=== PATIENT | female | born 1950 | race Caucasian/White ===

== ENCOUNTER 2022-01-05 10:30 | Observation (INO) | payer MEDICARE, BC ==
[2022-01-05 13:36] LABS: Hemoglobin 13.7 g/dL (12.0-15.5); Mean Corpuscular HGB CONC 33.3 g/dL (32.0-36.0); Mean Corpuscular Hemoglobin 32.9 pg (27.0-33.0); Mean Platelet Volume 8.9 fl (7.4-10.4); Platelet Count 259 10x3/uL (150-450); RBC Distribution Width 13.9 % (11.5-14.5); Red Blood Cell (RBC) Count 4.16 10x6/uL (3.90-5.03); White Blood Cell (WBC) Count 4.7 10x3/uL (3.5-10.5)
[2022-01-05 13:49] LABS: PTT 29.9 sec (22.0-33.0)
[2022-01-05 13:51] LABS: Anion Gap 15 mmol/L (10-20); BUN (Urea Nitrogen) 13 mg/dL (9.8-20.1); Calc. Creatinine Clearance 0 mL/min (70-130); Calcium 8.9 mg/dL (7.8-10.44); Carbon Dioxide 23 mmol/L (23-31); Chloride 103 mmol/L (98-107); Glucose 107 mg/dL (83-110); Potassium 4.2 mmol/L (3.5-5.1); Sodium 137 mmol/L (136-145)
[2022-01-05 15:45] VITALS: BMI 28.1
[2022-01-10] MEDS ORDERED: Lidocaine 1% MPF 2 ML VIAL ONE (06:38)
[2022-01-10] MEDS ORDERED: Famotidine/PF 20 mg/2ml Vial ONE (06:50)
[2022-01-10] MEDS ORDERED: Phenylephrine 40 MG/NS 250 ML 250 ML ONE (06:52)
[2022-01-10] MEDS ORDERED: Fentanyl 250 MCG/5 ML VIAL ONE (06:52)
[2022-01-10] MEDS ORDERED: Propofol 1,000 MG/100 ML VIAL IV ONE (06:52)
[2022-01-10] MEDS ORDERED: Lidocaine 1% PF 5 ML VIAL ONE (06:54)
[2022-01-10] MEDS ORDERED: Ondansetron PF 4 MG/2 ML Vial ONE (06:54)
[2022-01-10] MEDS ORDERED: Dexamethasone 4 mg/ml Vial ONE (06:54)
[2022-01-10] MEDS ORDERED: Rocuronium Bromide 10 MG/ML (10ML VIAL) ONE (06:54)
[2022-01-10] MEDS ORDERED: ceFAZolin 2 GM/Dextrose 50 ML IVPB ONE (06:56)
[2022-01-10] MEDS ORDERED: ePHEDrine Sulfate 50 MG/10 ML VIAL ONE (07:26)
[2022-01-10] MEDS ORDERED: Glycopyrrolate 0.2 MG/ML 5 ML SYRINGE ONE (10:03)
[2022-01-10] MEDS ORDERED: HYDROcodone/Acetaminophen 5/325 mg Tablet PO PRN (10:23)
[2022-01-10] MEDS ORDERED: INFLIXIMAB DYYB 100 MG IVPB SCH (10:30)
[2022-01-10] MEDS ORDERED: Communication Order-Pharmacy FS PRN (10:30)
[2022-01-10] MEDS ORDERED: Fentanyl 100 MCG/2 ML VIAL ONE ×2 (10:53→11:21)
[2022-01-10] MEDS: Morphine 2 MG/ML VIAL SLOW IVP PRN ×2 (14:14→17:00)
[2022-01-10 16:31] VITALS: BP 103/51; TEMP 97.4
[2022-01-10] MEDS: ceFAZolin 2 GM/Dextrose 50 ML 2 GM in Premix Bag 1 BAG IVPB SCH ×2 (17:00→22:27)
[2022-01-10] MEDS ORDERED: Amiodarone 200 MG TAB PO SCH (21:00)
[2022-01-10] MEDS ORDERED: Rosuvastatin 10 MG TAB PO SCH (21:00)
[2022-01-10] MEDS ORDERED: Promethazine 25 MG TAB PO SCH (21:30)
[2022-01-10] MEDS ORDERED: Zolpidem Tartrate 5 MG TAB PO SCH (21:30)
[2022-01-10] MEDS: Aspirin 81 mg Enteric Coated Tablet PO SCH (21:31)
[2022-01-11] MEDS ORDERED: Zolpidem Tartrate 5 MG TAB PO SCH (05:30)
[2022-01-11] MEDS ORDERED: Promethazine 25 MG TAB PO SCH (05:30)
[2022-01-11] MEDS: ceFAZolin 2 GM/Dextrose 50 ML 2 GM in Premix Bag 1 BAG IVPB SCH (05:42)
[2022-01-11] MEDS ORDERED: diphenhydrAMINE 25 MG CAP PO SCH ×2 (05:45→09:45)
[2022-01-11] MEDS ORDERED: Levothyroxine Sodium 112 MCG TAB PO SCH (06:00)
[2022-01-11] MEDS ORDERED: Levothyroxine Sodium 25 MCG TAB PO SCH (06:00)
[2022-01-11] MEDS: Aspirin 81 mg Enteric Coated Tablet PO SCH (08:01)
[2022-01-11] MEDS ORDERED: Cholecalciferol 1,000 UNITS (25 MCG) TAB PO SCH (09:00)
[2022-01-11] MEDS ORDERED: Folic Acid 1 MG TAB PO SCH (09:00)
== END 2022-01-11 10:18 | disposition home or self-care (01) ==
LOC: INTOOBSV 01-10 05:37 → CSHERHOLD 01-10 05:37 → CSHTELE 01-10 11:20 → EDSTATUS 01-10 12:30
PROVIDERS: ADMIT Orthopaedic Surgery; ATTEND Orthopaedic Surgery
PROC: 0RG Upper Joints, Fusion (ICD-10-PCS; principal; 2022-01-10)
DX: M50.121 Cervical disc disorder at C4-C5 level with radiculopathy (principal); M48.02 Spinal stenosis, cervical region; Z88.1 Allergy status to other antibiotic agents; Z01.818 Encounter for other preprocedural examination; Z20.822 Contact with and (suspected) exposure to COVID-19
CPT/HCPCS: 22551; 22552; 22853 ×3; 72050; 80048; 85027; 85610; 85730; 86850; 86900; 86901; 93005; 96374; 96375; 96376 ×2; C1713 ×2; C1762; C1889; G0378 ×2; J2270; U0003; U0005; 93010; J0690; J1100; J2405; J2704; J3010; Q0169; S0028

== ENCOUNTER 2022-01-05 12:34 | Outpatient (CLI) | payer MEDICARE, BC | END 2022-01-05 12:35 | disposition home or self-care (01) | LOC: CSHLAB 12:34 | PROVIDERS: ATTEND Orthopaedic Surgery | DX: Z01.818 Encounter for other preprocedural examination (principal); Z20.822 Contact with and (suspected) exposure to COVID-19; M54.2 Cervicalgia | CPT/HCPCS: 80048; 85027; 85610; 85730; 86850; 86900; 86901; 93005; 93010; U0003; U0005 ==

== ENCOUNTER 2023-08-14 15:43 | Inpatient (IN) | payer MEDICARE, BC ==
[2023-08-14 16:49] LABS: #Basophils 0.1 10x3/uL (0.0-0.2); #Eosinphils 0.1 10x3/uL (0.0-0.5); #Monocytes 0.9 10x3/uL (0.0-1.1); %Basophils 0.8 % (0.0-2.0); %Eosinophils 1.6 % (0.0-6.0); %Lymphocytes 18.3 % (18.0-47.0); %Monocytes 14.9 % (0.0-10.0); %Neutrophils 64.1 % (40.0-75.0); Hematocrit 33.5 % (34.9-44.5); Hemoglobin 10.8 g/dL (12.0-15.5); Mean Corpuscular HGB CONC 32.2 g/dL (32.0-36.0); Mean Corpuscular Volume 93.1 fl (81.6-98.3); Mean Platelet Volume 9.1 fl (7.4-10.4); Platelet Count 357 10x3/uL (150-450); RBC Distribution Width 15.7 % (11.5-14.5); White Blood Cell (WBC) Count 6.3 10x3/uL (3.5-10.5)
[2023-08-14 17:05] LABS: Troponin I 0.015 ng/mL (< 0.028)
[2023-08-14 17:24] LABS: ALT (SGPT) 125 U/L (8-55); AST (SGOT) 171 U/L (5-34); Albumin 3.6 g/dL (3.4-4.8); Alkaline Phosphatase 79 U/L (40-110); Anion Gap 17 mmol/L (10-20); BUN (Urea Nitrogen) 17 mg/dL (9.8-20.1); Bilirubin, Total 0.4 mg/dL (0.2-1.2); Calc. Creatinine Clearance 0 mL/min (70-130); Calcium 9.7 mg/dL (7.8-10.44); Carbon Dioxide 27 mmol/L (23-31); Chloride 98 mmol/L (98-107); Estimated GFR 36; Globulin 3.9 g/dL (2.4-3.5); Glucose 108 mg/dL (83-110); Lipase 31 U/L (8-78); Magnesium 1.9 mg/dL (1.6-2.6); Potassium 2.7 mmol/L (3.5-5.1); Protein, Total 7.5 g/dL (5.8-8.1); Sodium 139 mmol/L (136-145)
[2023-08-14] MEDS ORDERED: Potassium Chloride 20 MEQ TAB ONE (17:36)
[2023-08-14] MEDS ORDERED: Magnesium 2 GM/50 ML BAG (IN WATER) ONE (17:37)
[2023-08-14] MEDS ORDERED: Senokot S 8.6-50 MG TAB PO PRN (18:12)
[2023-08-14 20:09] VITALS: BMI 26.4
[2023-08-14] MEDS ORDERED: Famotidine 20 MG TAB PO SCH (21:00)
[2023-08-14] MEDS ORDERED: Colchicine 0.6 MG TAB PO SCH (22:00)
[2023-08-14] MEDS: Acetaminophen 325 MG TAB PO PRN (22:20)
[2023-08-14] MEDS: Zolpidem Tartrate 5 MG TAB PO PRN (22:21)
[2023-08-15] MEDS: Ondansetron ODT 4 MG TAB PO PRN ×3 (04:25→21:08)
[2023-08-15 04:39] LABS: #Eosinphils 0.1 10x3/uL (0.0-0.5); #Neutrophils 2.7 10x3/uL (1.5-8.4); %Basophils 0.7 % (0.0-2.0); %Lymphocytes 28.9 % (18.0-47.0); %Monocytes 18.8 % (0.0-10.0); %Neutrophils 49.4 % (40.0-75.0); Hematocrit 29.8 % (34.9-44.5); Hemoglobin 9.8 g/dL (12.0-15.5); Mean Corpuscular HGB CONC 32.9 g/dL (32.0-36.0); Mean Corpuscular Hemoglobin 30.3 pg (27.0-33.0); Mean Corpuscular Volume 92.3 fl (81.6-98.3); Mean Platelet Volume 9.3 fl (7.4-10.4); Platelet Count 289 10x3/uL (150-450); RBC Distribution Width 15.7 % (11.5-14.5); Red Blood Cell (RBC) Count 3.23 10x6/uL (3.90-5.03); White Blood Cell (WBC) Count 5.5 10x3/uL (3.5-10.5)
[2023-08-15 04:52] LABS: Anion Gap 15 mmol/L (10-20); BUN (Urea Nitrogen) 15 mg/dL (9.8-20.1); Calc. Creatinine Clearance 41 mL/min (70-130); Calcium 8.5 mg/dL (7.8-10.44); Carbon Dioxide 25 mmol/L (23-31); Chloride 102 mmol/L (98-107); Estimated GFR 42; Glucose 82 mg/dL (83-110); Sodium 139 mmol/L (136-145)
[2023-08-15 05:02] LABS: Potassium 2.6 mmol/L (3.5-5.1)
[2023-08-15] MEDS ORDERED: Potassium Chloride 20 MEQ TAB PO SCH (06:15)
[2023-08-15] MEDS ORDERED: Potassium Chloride 40 MEQ in Premix 1 BAG IVPB SCH (07:45)
[2023-08-15] MEDS ORDERED: Levothyroxine Sodium 112 MCG TAB PO SCH (08:00)
[2023-08-15 08:15] LABS: Magnesium 2.1 mg/dL (1.6-2.6); Phosphorus 3.6 mg/dL (2.3-4.7)
[2023-08-15] MEDS: Flecainide 50 MG TAB PO SCH ×3 (08:33→21:12)
[2023-08-15] MEDS: Folic Acid 1 MG TAB PO SCH (08:33)
[2023-08-15] MEDS: Colchicine 0.6 MG TAB PO SCH ×2 (08:34→21:13)
[2023-08-15] MEDS: Aspirin 81 mg Enteric Coated Tablet PO SCH (08:34)
[2023-08-15] MEDS: Potassium Chloride 20 MEQ in Premix 1 BAG IVPB SCH ×2 (08:34→14:20)
[2023-08-15] MEDS: Potassium Chloride 20 MEQ TAB PO SCH ×2 (08:34→16:58)
[2023-08-15] MEDS: Metoprolol Tartrate 25 MG TAB PO SCH ×2 (08:34→21:13)
[2023-08-15] MEDS: Apixaban 5 MG TAB PO SCH ×2 (08:34→21:13)
[2023-08-15] MEDS: Fludrocortisone Acetate 0.1 MG TAB PO SCH ×3 (08:45→15:10)
[2023-08-15] MEDS ORDERED: RISEDRONATE SODIUM 35 MG PO SCH (15:30)
[2023-08-15] MEDS: Acetaminophen 325 MG TAB PO PRN (19:02)
[2023-08-15 20:22] LABS: Potassium, Urine 34.5 mmol/L
[2023-08-15] MEDS ORDERED: Famotidine 20 MG TAB PO SCH (21:00)
[2023-08-15] MEDS ORDERED: Rosuvastatin 20 MG TAB PO SCH (21:00)
[2023-08-15] MEDS: Zolpidem Tartrate 5 MG TAB PO PRN (21:13)
[2023-08-15 21:50] LABS: Anion Gap 13 mmol/L (10-20); BUN (Urea Nitrogen) 12 mg/dL (9.8-20.1); Calc. Creatinine Clearance 42 mL/min (70-130); Calcium 8.2 mg/dL (7.8-10.44); Carbon Dioxide 25 mmol/L (23-31); Chloride 105 mmol/L (98-107); Estimated GFR 43; Glucose 119 mg/dL (83-110); Potassium 3.8 mmol/L (3.5-5.1); Sodium 139 mmol/L (136-145)
[2023-08-15] MEDS ORDERED: Loperamide HCl 2 MG CAP PO SCH (22:00)
[2023-08-16 04:21] LABS: Potassium 3.4 mmol/L (3.5-5.1); Sodium 140 mmol/L (136-145)
[2023-08-16 04:22] LABS: Anion Gap 12 mmol/L (10-20); BUN (Urea Nitrogen) 10 mg/dL (9.8-20.1); Calc. Creatinine Clearance 49 mL/min (70-130); Calcium 8.1 mg/dL (7.8-10.44); Carbon Dioxide 24 mmol/L (23-31); Chloride 107 mmol/L (98-107); Estimated GFR 52; Glucose 101 mg/dL (83-110)
[2023-08-16] MEDS ORDERED: Levothyroxine Sodium 125 MCG TAB PO SCH (06:00)
[2023-08-16] MEDS ORDERED: Levothyroxine Sodium 112 MCG TAB PO SCH (06:00)
[2023-08-16] MEDS ORDERED: Levothyroxine 150 MCG TAB PO SCH (06:00)
[2023-08-16] MEDS: Colchicine 0.6 MG TAB PO SCH (07:54)
[2023-08-16] MEDS: Apixaban 5 MG TAB PO SCH (07:54)
[2023-08-16] MEDS: Folic Acid 1 MG TAB PO SCH (07:54)
[2023-08-16] MEDS: Aspirin 81 mg Enteric Coated Tablet PO SCH (07:54)
[2023-08-16] MEDS: Metoprolol Tartrate 25 MG TAB PO SCH (07:55)
[2023-08-16] MEDS: Flecainide 50 MG TAB PO SCH (07:55)
[2023-08-16] MEDS: Potassium Chloride 20 MEQ TAB PO SCH (07:55)
[2023-08-16] MEDS ORDERED: Potassium Chloride 20 MEQ TAB PO SCH (08:45)
[2023-08-16] MEDS ORDERED: Potassium Chloride 20 MEQ in Premix 1 BAG IVPB SCH (08:45)
[2023-08-16] MEDS ORDERED: Sertraline 100 MG TAB PO SCH (09:00)
[2023-08-16] MEDS ORDERED: Ezetimibe 10 MG TAB PO SCH (09:00)
[2023-08-16] MEDS ORDERED: Fludrocortisone Acetate 0.1 MG TAB PO SCH (09:00)
[2023-08-16 10:35] VITALS: TEMP 97.6
[2023-08-16 13:06] VITALS: BP 197/84
== END 2023-08-16 13:29 | disposition home or self-care (01) | DRG 641 ==
LOC: CSHERS 15:43 → CSHTELE 18:08 → OBSVTOIN 08-15 14:10
PROVIDERS: ADMIT Internal Medicine; ATTEND Internal Medicine
DX: E87.6 Hypokalemia (principal); I48.0 Paroxysmal atrial fibrillation; K21.9 Gastro-esophageal reflux disease without esophagitis; M06.9 Rheumatoid arthritis, unspecified; I10 Essential (primary) hypertension; E78.5 Hyperlipidemia, unspecified; I25.10 Atherosclerotic heart disease of native coronary artery without angina pectoris; E83.42 Hypomagnesemia; E03.9 Hypothyroidism, unspecified; Z88.2 Allergy status to sulfonamides; Z88.5 Allergy status to narcotic agent; Z79.899 Other long term (current) drug therapy; Z98.890 Other specified postprocedural states; Z79.01 Long term (current) use of anticoagulants; Z86.718 Personal history of other venous thrombosis and embolism; Z90.49 Acquired absence of other specified parts of digestive tract
CPT/HCPCS: 36415; 71045; 80048; 80053; 82436; 82533; 83690; 83735; 84100; 84133; 84300; 84439; 84443; 84481; 84484; 85025; 93005; 94762; J3475; J3480; Q0162